=== PATIENT | female | born 1960 | race African-American/Black ===

== ENCOUNTER → 2017-03-07 | Outpatient (CLI) | payer BC ==
[2014-11-02 10:50] VITALS: BP 133/63
[~2017-03-07] MED LIST: ACET500T68 PO; ASPI-482 PO; DEXA4TAB PO; LOSA50TA6 PO; MV,C1TAB19 PO; NAPR220C4 PO; PRAV20TA2 PO
--- NOTE | 2017-03-07 13:33 | KCIC ---
Diagnostic digital mammograms left breast: Reason for examination: Routine screening. History of right breast cancer with mastectomy and left breast reduction. Comparison is made to previous studies dated 02/22/2015 and 12/01/2013. The skin and nipple show no abnormalities. No abnormal axillary lymph nodes are seen. The breast parenchyma shows scattered fibroglandular density. (Breast density: Category B.) There are no dominant masses, suspicious calcifications or architectural distortions. Impression: No evidence of malignancy. Recommend routine screening. BI-RADS Category 1: Negative. "Our facility is accredited by the [employer] Mammography Program." This patient's information has been entered into a reminder system for the patient to be notified with the results of her examination and a target date for the next mammogram. Electronically signed by: Monique Cotto MD (03/07/2017 1:30 PM)
== END | disposition home or self-care (01) ==
LOC: KCIC MAMMO 13:05
PROVIDERS: ATTEND Internal Medicine Hematology & Oncology
DX: R92.8 Other abnormal and inconclusive findings on diagnostic imaging of breast (principal); Z85.3 Personal history of malignant neoplasm of breast
CPT/HCPCS: G0206; 77065

== ENCOUNTER → 2017-03-07 | Outpatient (CLI) | payer BC ==
[2014-11-02 10:50] VITALS: BP 133/63
--- NOTE | 2017-03-07 15:14 | KCIC ---
PELVIS W/TV History: Postmenopausal bleeding for one week Comparison: None. Findings: Multiple transabdominal sonographic images of the pelvis are submitted. Pelvic structures are not well visualized. Transvaginal ultrasound: Multiple transvaginal sonographic images of the pelvis are submitted. Endometrium is thickened on the order of 1, some interspersed small cystic foci. Uterus measured 9.6 x 4.6 x 5.8 cm. There is mass of the uterus in the myometrium at the fundus more eccentric to the right which approximates the endometrial complex up to 1.5 x 1.5 x 1.5 cm in size. There is another mass in the myometrium near the fundus on the order of 1.9 x 1.6 x 1.8 cm more eccentric to the left. Right ovary measured 1.7 x 2.3 x 2.5 cm, normal low resistance vascularity. Left ovary measured 2.9 x 1.7 x 1.9 cm, normal low resistance vascularity. There are cysts, one of which is septated with internal echoes present. Another focus on the order of about 1 cm in size has diffuse internal echoes although increased through transmission, possibly a complex cyst. No significant free fluid is demonstrated. Impression: 1. There is endometrial thickening which may be due to hyperplasia although neoplasm not excluded. 2. There are nabothian cysts including a septated cyst with some internal debris and a separate focus with diffuse internal echoes which may be due to sequela of more complex or hemorrhagic cyst. Electronically signed by: Doc Lutz MD (03/07/2017 3:11 PM)
== END | disposition home or self-care (01) ==
LOC: KCIC US 12:54
PROVIDERS: ATTEND Nurse Practitioner Family
DX: N88.8 Other specified noninflammatory disorders of cervix uteri (principal); R93.8 Abnormal findings on diagnostic imaging of other specified body structures
CPT/HCPCS: 76830; 76856

== ENCOUNTER → 2018-04-04 | Outpatient (CLI) | payer BC | END | disposition home or self-care (01) | LOC: KCIC MAMMO 10:58 | DX: R92.8 Other abnormal and inconclusive findings on diagnostic imaging of breast (principal); E78.5 Hyperlipidemia, unspecified; Z85.3 Personal history of malignant neoplasm of breast | CPT/HCPCS: 77065 ==